=== PATIENT | female | born 1980 | race Caucasian/White ===

== ENCOUNTER 2021-07-30 11:25 | Day surgery (SDC) | payer OTHER ==
[2021-07-30] MEDS ORDERED: LIDOCAINE HCL 2% 100 MG/5 ML IJ ONE (11:26)
[2021-07-30] MEDS ORDERED: Xylocaine 1% Vial 30 ML PF IJ ONE (11:26)
[2021-07-30] MEDS ORDERED: DIPRIVAN 200 MG/20 ML IV ONE (15:24)
[2021-07-30] MEDS ORDERED: Lactated Ringers 1,000 ML IV ONE (15:25)
--- NOTE | 2021-07-30 16:34 | XRAY ---
Indication: Bilateral L4-S1 MBB. Intraoperative fluoroscopy provided for 25 seconds. Single digital spot image submitted for interpretation demonstrate posterior needle tips projecting over the expected left and right L4-S1 nerve roots. Correlate with intraoperative findings/report.
--- NOTE | 2021-07-30 16:46 | XRAY ---
25 seconds fluoroscopy time in surgery for bilateral L4-S1 MBB.
== END 2021-07-30 15:43 | disposition home or self-care (01) ==
LOC: SDC-PAIN 11:25
PROVIDERS: ATTEND Psychiatry & Neurology Pain Medicine
DX: M47.816 Spondylosis without myelopathy or radiculopathy, lumbar region (principal); I10 Essential (primary) hypertension; Z79.899 Other long term (current) drug therapy
CPT/HCPCS: 64493; 64494; 72020; 77002; 84703; J2001; J2704

== ENCOUNTER 2021-08-20 10:19 | Day surgery (SDC) | payer OTHER ==
[2021-08-20] MEDS ORDERED: BUPIVACAINE 0.5% VIAL IJ ONE (10:20)
[2021-08-20] MEDS ORDERED: DIPRIVAN 200 MG/20 ML IV ONE ×2 (12:39→12:47)
[2021-08-20] MEDS ORDERED: Lactated Ringers 1,000 ML IV ONE (13:06)
--- NOTE | 2021-08-20 14:23 | XRAY ---
Indication: Bilateral L4-S1 MBB. Intraoperative fluoroscopy provided for 14 seconds. Single digital spot image submitted for interpretation demonstrates posterior needle tips projecting over the expected left and right L4-S1 nerve roots. Correlate with intraoperative findings/report.
--- NOTE | 2021-08-20 14:37 | XRAY ---
14 seconds fluoroscopy time in surgery for bilateral L4-S1 MBB.
== END 2021-08-20 13:10 | disposition home or self-care (01) ==
LOC: SDC-PAIN 10:19
PROVIDERS: ATTEND Psychiatry & Neurology Pain Medicine
DX: M47.816 Spondylosis without myelopathy or radiculopathy, lumbar region (principal); I10 Essential (primary) hypertension; Z79.899 Other long term (current) drug therapy
CPT/HCPCS: 64493; 64494; 72020; 77002; 84703; J2704

== ENCOUNTER 2021-10-01 10:44 | Day surgery (SDC) | payer OTHER ==
[2021-10-01] MEDS ORDERED: BUPIVACAINE 0.5% VIAL IJ ONE (10:45)
[2021-10-01] MEDS ORDERED: Depo-Medrol 40 MG/ML IM ONE (10:45)
[2021-10-01] MEDS ORDERED: Xylocaine 1% Vial 30 ML PF IJ ONE (10:45)
[2021-10-01] MEDS ORDERED: DIPRIVAN 200 MG/20 ML IV ONE ×2 (13:24→13:31)
[2021-10-01] MEDS ORDERED: Lactated Ringers 1,000 ML IV ONE (13:55)
--- NOTE | 2021-10-01 15:14 | XRAY ---
Indication: Left L4-S1 RFA. Intraoperative fluoroscopy provided for 34 seconds. 3 digital spot image submitted for interpretation demonstrates posterior needle tips projecting over the expected left L4-S1 nerve roots. Correlate with intraoperative findings/report.
--- NOTE | 2021-10-01 15:18 | XRAY ---
34 seconds fluoroscopy time in surgery for left L4-S1 RFA.
== END 2021-10-01 13:55 | disposition home or self-care (01) ==
LOC: SDC-PAIN 10:44
PROVIDERS: ATTEND Psychiatry & Neurology Pain Medicine
DX: M47.816 Spondylosis without myelopathy or radiculopathy, lumbar region (principal); I10 Essential (primary) hypertension; Z79.899 Other long term (current) drug therapy
CPT/HCPCS: 64635; 64636; 72100; 77002; 84703; J1030; J2001; J2704

== ENCOUNTER 2021-10-08 14:36 | Day surgery (SDC) | payer OTHER ==
[2021-10-08] MEDS ORDERED: BUPIVACAINE 0.5% VIAL IJ ONE (14:37)
[2021-10-08] MEDS ORDERED: Xylocaine 1% Vial 30 ML PF IJ ONE (14:37)
[2021-10-08] MEDS ORDERED: Depo-Medrol 40 MG/ML IM ONE (14:37)
[2021-10-08] MEDS ORDERED: Lactated Ringers 1,000 ML IV ONE (16:32)
[2021-10-08] MEDS ORDERED: DIPRIVAN 200 MG/20 ML IV ONE (16:36)
--- NOTE | 2021-10-08 20:05 | XRAY ---
Indication: Right L4-S1 RFA. Intraoperative fluoroscopy provided for 37 seconds. 3 digital spot image submitted for interpretation demonstrates posterior needle tips projecting over the expected right L4-S1 nerve roots. Correlate with intraoperative findings/report.
--- NOTE | 2021-10-09 09:05 | XRAY ---
37 seconds fluoroscopy time in surgery for right L4-S1 RFA.
== END 2021-10-08 17:05 | disposition home or self-care (01) ==
LOC: SDC-PAIN 14:36
PROVIDERS: ATTEND Psychiatry & Neurology Pain Medicine
DX: M47.816 Spondylosis without myelopathy or radiculopathy, lumbar region (principal); Z79.899 Other long term (current) drug therapy
CPT/HCPCS: 64635; 64636; 72100; 77002; 84703; J1030; J2001; J2704